=== PATIENT | female | born 1950 | race Caucasian/White ===

== ENCOUNTER 2020-02-03 17:10 | Outpatient (CLI) | payer MEDICARE, SELFPAY ==
[2020-02-03 18:05] LABS: Alanine Aminotransferase 15 U/L (4-35); Albumin Level 3.8 g/dL (3.5-5.1); Alkaline Phosphatase 70 U/L (38-126); Aspartate Amino Transferase 32 U/L (14-36); Bilirubin,Total 0.5 mg/dL (0.2-1.3); Blood Urea Nitrogen 12 mg/dL (7-17); Calcium 8.8 mg/dL (8.4-10.2); Carbon Dioxide 32 mmol/L (22-30); Chloride 101 mmol/L (98-107); Cholesterol 156 mg/dL (0-200); Estimated Glomerular Filt Rate 49; Glucose 167 mg/dL (65-105); HDL Direct 39 mg/dL; Potassium 4.5 mmol/L (3.4-5.0); Sodium 139 mmol/L (137-145); Triglycerides 179 mg/dL (<150)
[2020-02-03 18:18] LABS: LDL Cholesterol Direct 93 mg/dL
[2020-02-03 18:36] LABS: Hemoglobin A1C 6.2 % (<5.7)
[2020-02-03 18:47] LABS: Vitamin D 25 Hydroxy 36.6 ng/mL
== END 2020-02-03 17:11 | disposition home or self-care (01) ==
PROVIDERS: PCP Internal Medicine; Visit Provider Nurse Practitioner
DX: E11.65 Type 2 diabetes mellitus with hyperglycemia (principal); Z79.4 Long term (current) use of insulin; E78.5 Hyperlipidemia, unspecified; E55.9 Vitamin D deficiency, unspecified
CPT/HCPCS: 36415; 80053; 80061; 82306; 83036

== ENCOUNTER 2020-03-15 13:10 | Outpatient (RCR) | payer MEDICARE, SELFPAY ==
--- NOTE | 2020-03-15 16:25 | PTOPEVAL ---
PHYSICAL THERAPY WHEELCHAIR EVALUATION Thank you for referring Carlie Montero to [facility]. Please see attached wheelchair evaluation for details. No further care will be administered. Please review, sign, date and return this plan of care DAVID. I agree with and certify that the following plan of care is medically necessary. Referring Physician Date Attending Provider: Chauncey Addison, DO Evaluation Neurological History Hx Neurological Disorders No Significant History Cardiovascular History Hx Cardiac Disorders No Significant History Respiratory History Hx Other Respiratory Disorders Yes: history of punctured lungs, resting 93% SaO2 Musculoskeletal History Hx Back Injury Yes Hx Back Pain Yes: fusion Hx Orthopedic Surgery Yes: right femur ORIF Pain History Has Past Pain Affected Your Daily Life Yes Evaluation Information Problem Diagnosis I89.0, E66.01, M54.4 Subjective Information Wheelchair evaluation: Carlie Query Text:As Reported By Patient/ is in need of a new power Family wheelchair. Her current chair is 20 years ago and is currently worn beyond repair. Please see scanned wheelchair evaluation for details regarding history and home setting and current needs for the power wheelchair. Based on her medical history she requires the power wheelchair for functional and independent mobility within her home. Self Report Pain Assessment Bilateral Back Reported Pain Level 7 Pain Score Pain Score 7: Self Report
== END 2020-06-13 23:59 | disposition home or self-care (01) ==
LOC: ANHPT 13:10
PROVIDERS: PCP Internal Medicine; Visit Provider Internal Medicine
DX: I89.0 Lymphedema, not elsewhere classified (principal); M54.5 Low back pain; E66.01 Morbid (severe) obesity due to excess calories; G89.29 Other chronic pain; Z87.39 Personal history of other diseases of the musculoskeletal system and connective tissue
CPT/HCPCS: 97162

== ENCOUNTER 2020-06-14 23:20 | Emergency (ER) | payer MEDICARE, SELFPAY ==
--- NOTE | ~2020-06-14 | XR_ITS ---
EXAMINATION: XR chest 1V portable EXAM DATE: 06/15/2020 00:39 INDICATION: Weakness, shortness of breath. TECHNIQUE: Portable AP frontal chest x-ray was obtained. Comparison is made to prior examination from 11/25/2018. FINDINGS: There is mild cardiomegaly. There is pulmonary vascular congestion. No confluent consolidat ion, pneumothorax or pleural effusion suspected. There are bony degenerative changes. IMPRESSION: Congestive changes. Reviewed, dictated and finalized at location A. IMPRESSION: Congestive changes.
[2020-06-14 23:22] VITALS: BP 152/100; PULSE 104; RESP 20; TEMP 37.9; O2SAT 100
--- NOTE | 2020-06-14 23:25 | ECG_ITS ---
Measurements Intervals [place] Rate: 103 P: 55 ND: 195 QRS: 18 QRSD: 101 T: 43 QT: 346 QTc: 453 Interpretive Statements SINUS TACHYCARDIA BORDERLINE ST-T WAVE ABNORMALITY- INF/LAT LEADS BASELINE WANDER- I, II ABNORMAL ECG Electronically Signed On 06-19-2020 16:07:59 CDT by Darnell Dewitt D.O.
[2020-06-15] MEDS: ONDANSETRON INJ 4 MG/2 ML VIAL IV PUSH (00:01)
[2020-06-15] MEDS: ACETAMINOPHEN 500 MG TABLET 1000 MG PO (00:01)
[2020-06-15 00:06] LABS: Basophils Percent Auto 0.2 % (0.2-1.2); Eosinophils Absolute Auto 0.1 K/mm3 (0-0.3); Eosinophils Percent Auto 0.5 % (0-4.4); Hematocrit 36.9 % (37.0-47.0); Hemoglobin 12.7 g/dL (12.0-15.0); Immature Granulocyte Absolute 0.04 K/mm3 (0.00-0.031); Immature Granulocyte Percent A 0.3 % (0-0.5); Lymphocytes Absolute Auto 0.69 K/mm3 (0.9-3.2); Lymphocytes Percent Auto 5.5 % (18.3-44.2); Mean Corpuscular HGB Conc 34.4 g/dl (32-36); Mean Corpuscular Hemoglobin 32.9 pg (26-34); Mean Corpuscular Volume 95.6 fl (80-100); Mean Platelet Volume 10.2 fl (7.4-10.4); Monocytes Absolute Auto 0.8 K/mm3 (0.1-0.6); Neutrophils Absolute Auto 10.9 K/mm3 (1.3-6.7); Neutrophils Percent Auto 87.5 % (45.5-73.1); Platelet Count Result 122 k/mm3 (150-375); Red Blood Count 3.86 M/mm3 (4.2-5.4); Red Cell Distribution Width 12.8 % (11.5-14.5); White Blood Count 12.5 K/mm3 (4.5-10.0)
[2020-06-15 00:30] LABS: Alanine Aminotransferase 13 U/L (4-35); Albumin Level 3.8 g/dL (3.5-5.1); Alkaline Phosphatase 88 U/L (38-126); Anion Gap 7 mmol/L (8-16); Aspartate Amino Transferase 30 U/L (14-36); Blood Urea Nitrogen 13 mg/dL (7-17); Calcium 9.1 mg/dL (8.4-10.2); Carbon Dioxide 29 mmol/L (22-30); Chloride 101 mmol/L (98-107); Estimated CRCL calculation 88 ml/min; Estimated Glomerular Filt Rate 55; Glucose 107 mg/dL (65-105); Lipase 17 U/L (23-300); Potassium 4.1 mmol/L (3.4-5.0); Sodium 137 mmol/L (137-145)
[2020-06-15 00:58] VITALS: BP 141/80; PULSE 109; RESP 20; TEMP 38.3; O2SAT 99
[2020-06-15 01:33] LABS: Add Urine Microscopic? YES; Appearance Urine Cloudy (Clear); Bacteria Urine Trace /hpf; Bilirubin Urine Negative (Negative); Blood Urine 1+ (Negative); Color Urine Yellow (Yellow); Glucose Urine UA Negative (Negative); Ketones Urine Negative (Negative); Leukocyte Esterase Ur 3+ LEU/UL (Negative); Mucus Urine Rare /lpf; Nitrate Urine Negative (Negative); Protein Urine 2+ mg/dL (Negative); RBC Urine 21-50 /hpf (0-2); Squamous Epithelial Cell Urine Moderate /hpf (Few); WBC Urine >75 /hpf
[2020-06-15] MEDS: AMOXICILLIN 500 MG CAPSULE PO (02:03)
--- NOTE | 2020-06-15 02:22 | ED.GENADULT ---
HPI - General Adult General Chief complaint: Weakness Stated complaint: weak Time Seen by Provider: 06/14/20 23:23 History of Present Illness HPI narrative: Patient is a 69-year-old female who presents the ER with concerns for weakness. Reports just this evening she started feels slightly weaker than typical and then her and her family noted that her temperature was elevated to 102 ?F. She is had no runny nose/sore throat/productive cough. No known COVID exposures. No loss of smell or taste. She denies any abdominal pain or diarrhea. She is without any nausea or vomiting. She does not think she is having any abnormal urinary symptoms. Related Data Home Medications Medication Instructions Recorded Confirmed nystatin 100,000 unit/gram topical 1 applic TOPICAL BID 08/04/19 08/10/19 powder insulin human U-100 NPH-regulr See Rx Instructions SUB-Q .COMPLEX 11/22/19 70-30 mix 100 unit/mL subcutaneous susp oxycodone myristate [Xtampza ER] 18 mg PO BID 06/15/20 Allergies Allergy/AdvReac Type Severity Reaction Status Date / Time nitrofurantoin Allergy Severe Unknown Verified 08/10/19 11:38 NSAIDS (Non-Steroidal Allergy Severe Unknown Verified 08/10/19 11:38 Anti-Inflamma nut - unspecified Allergy Severe Anaphylactic Verified 08/10/19 11:38 Shock adhesive Allergy Unknown Unknown Verified 08/10/19 11:38 cefaclor Allergy Unknown Unknown Verified 08/10/19 11:38 celecoxib Allergy Unknown Unknown Verified 08/10/19 11:38 Cephalosporins Allergy Unknown Unknown Verified 08/10/19 11:38 ciprofloxacin Allergy Unknown Vomiting Verified 08/10/19 11:38 ibuprofen Allergy Unknown Unknown Verified 08/10/19 11:38 inositol Allergy Unknown Unknown Verified 08/10/19 11:38 lisinopril Allergy Unknown Unknown Verified 08/10/19 11:38 morphine Allergy Unknown Unknown Verified 08/10/19 11:38 niacin Allergy Unknown Unknown Verified 08/10/19 11:38 peanut Allergy Unknown Unknown Verified 08/10/19 11:38 Pistachio Allergy Severe Anaphylactic Uncoded 08/10/19 11:38 Shock Cashew Allergy Unknown Unknown Uncoded 08/10/19 11:38 Contrast Media Allergy Unknown Unknown Uncoded 08/10/19 11:38 Review of Systems Review of Systems: All systems reviewed & are unremarkable except as noted in HPI and below Constitutional: Constitutional: Denies chills, Reports fever(s) and Denies weakness ENT: Denies nasal congestion and Denies sore throat Cardiovascular: Cardiovascular: Denies chest pain and Denies radiating jaw, neck or arm pain Gastrointestinal: Gastrointestinal: Denies abdominal pain, Denies diarrhea, Denies nausea and Denies vomiting Genitourinary: Genitourinary: Denies nocturia and Denies dysuria [facility] Past Medical History Medical History (Updated 06/15/20 @ 02:29 by Stefano Johnson MD) Benign essential hypertension Bipolar affective disorder Cholecystectomy planned Chronic dermatitis Coronary artery disease DM 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 HEAD: Normocephalic, atraumatic. ENT: Mucous membranes moist. CHEST: Clear to auscultation. No respiratory distress. HEART: Regular rate and rhythm. Normal peripheral pulses. ABDOMEN: Soft, nontender, nondistended, normal active bowel sounds. EXTREMITIES: Normal range of motion. Significant lower extremity edema bilaterally related to lymphedema
[2020-06-15 02:38] VITALS: BP 124/68; PULSE 104; RESP 20; TEMP 38.1; O2SAT 96
== END 2020-06-15 02:39 | disposition home or self-care (01) ==
PROVIDERS: Emergency Provider Emergency Medicine; PCP Internal Medicine
DX: N39.0 Urinary tract infection, site not specified (principal); I25.10 Atherosclerotic heart disease of native coronary artery without angina pectoris; I11.0 Hypertensive heart disease with heart failure; I50.9 Heart failure, unspecified; E78.2 Mixed hyperlipidemia; E66.01 Morbid (severe) obesity due to excess calories; Z68.44 Body mass index [BMI] 60.0-69.9, adult; G25.81 Restless legs syndrome; F31.9 Bipolar disorder, unspecified; Z79.4 Long term (current) use of insulin; Z86.718 Personal history of other venous thrombosis and embolism; Z79.84 Long term (current) use of oral hypoglycemic drugs
CPT/HCPCS: 36415; 51701; 71045; 80053; 81001; 83690; 85025; 87077; 87086; 87088; 87186; 93005; 96374; 99284; A9270; J2405

== ENCOUNTER 2020-08-21 13:04 | Outpatient (CLI) | payer MEDICARE, SELFPAY ==
[2020-08-21 13:59] LABS: Alanine Aminotransferase 14 U/L (4-35); Albumin Level 3.6 g/dL (3.5-5.1); Alkaline Phosphatase 83 U/L (38-126); Anion Gap 5 mmol/L (8-16); Aspartate Amino Transferase 33 U/L (14-36); Bilirubin,Total 0.9 mg/dL (0.2-1.3); Blood Urea Nitrogen 12 mg/dL (7-17); Carbon Dioxide 32 mmol/L (22-30); Chloride 102 mmol/L (98-107); Cholesterol 155 mg/dL (0-200); Estimated Glomerular Filt Rate > 60; Glucose 142 mg/dL (65-105); HDL Direct 29 mg/dL; Potassium 4.3 mmol/L (3.4-5.0); Sodium 139 mmol/L (137-145); Triglycerides 155 mg/dL (<150)
[2020-08-21 14:10] LABS: LDL Cholesterol Direct 100 mg/dL
[2020-08-21 15:19] LABS: Valproic Acid 33.6 ug/mL (50-120)
[2020-08-21 15:21] LABS: Hemoglobin A1C 5.8 % (<5.7)
== END 2020-08-21 13:05 | disposition home or self-care (01) ==
LOC: ANHLAB 13:05
PROVIDERS: PCP Internal Medicine; Visit Provider Internal Medicine
DX: E11.65 Type 2 diabetes mellitus with hyperglycemia (principal); Z51.81 Encounter for therapeutic drug level monitoring; Z79.899 Other long term (current) drug therapy; I10 Essential (primary) hypertension; E11.9 Type 2 diabetes mellitus without complications; E78.5 Hyperlipidemia, unspecified
CPT/HCPCS: 36415; 80053; 80061; 80164; 83036

== ENCOUNTER 2020-09-19 07:21 | Outpatient (RCR) | payer MEDICARE, SELFPAY ==
[2020-07-25 15:25] VITALS: BMI 57.2
== END 2020-09-19 12:31 | disposition home or self-care (01) ==
LOC: ANHWOC 07:21
PROVIDERS: PCP Internal Medicine; Visit Provider Internal Medicine
DX: L98.419 Non-pressure chronic ulcer of buttock with unspecified severity (principal)
CPT/HCPCS: 99211; 99213; G0463

== ENCOUNTER 2021-02-16 14:30 | Outpatient (CLI) | payer MEDICARE, SELFPAY ==
[2021-02-16 15:05] LABS: Alanine Aminotransferase 14 U/L (4-35); Albumin Level 3.7 g/dL (3.5-5.1); Alkaline Phosphatase 68 U/L (38-126); Anion Gap 7 mmol/L (8-16); Aspartate Amino Transferase 31 U/L (14-36); Bilirubin,Total 0.9 mg/dL (0.2-1.3); Blood Urea Nitrogen 14 mg/dL (7-17); Calcium 9.1 mg/dL (8.4-10.2); Carbon Dioxide 28 mmol/L (22-30); Chloride 104 mmol/L (98-107); Cholesterol 186 mg/dL (0-200); Estimated Glomerular Filt Rate 55; Glucose 127 mg/dL (65-105); HDL Direct 42 mg/dL; Potassium 4.7 mmol/L (3.4-5.0); Sodium 139 mmol/L (137-145); Triglycerides 139 mg/dL (<150)
[2021-02-16 15:15] LABS: LDL Cholesterol Direct 108 mg/dL
[2021-02-16 17:09] LABS: Hemoglobin A1C 5.8 % (<5.7)
== END 2021-02-16 14:31 | disposition home or self-care (01) ==
LOC: ANHLAB 14:32
PROVIDERS: PCP Internal Medicine; Visit Provider Nurse Practitioner
DX: E78.5 Hyperlipidemia, unspecified (principal); E11.9 Type 2 diabetes mellitus without complications
CPT/HCPCS: 36415; 80053; 80061; 83036

== ENCOUNTER 2021-03-15 04:29 | Emergency (ER) | payer MEDICARE, SELFPAY ==
[2021-03-15 04:35] VITALS: BP 176/85; PULSE 102; RESP 20; TEMP 36.9; O2SAT 98
--- NOTE | 2021-03-15 04:39 | ED.DENTAL ---
HPI - Dental/Oral General Chief complaint: Dental/Oral Stated complaint: cheek infection/dental Time Seen by Provider: 03/15/21 04:36 Source: patient Mode of arrival: ambulatory Limitations: no limitations History of Present Illness HPI Narrative: Patient is a 71-year-old female complaining of I think I have an abscess in my teeth left side that started last night. Patient states that she was recently treated for dental abscess on the right side by her dentist. Denies any facial swelling, dysphagia, fever or chills. Denies any dental injury. Related Data Home Medications Medication Instructions Recorded Confirmed vaginal moisturizer combo no.4 ea TOPICAL Q2H g 07/21/20 02/20/21 Healthy Colon 07/25/20 02/20/21 diphenhydramine HCl [Benadryl] 25 mg PO Q6H PRN 07/25/20 02/20/21 jkksanji-pdo-GS-lycopen-lutein 1 tablet PO DAILY 07/25/20 02/20/21 [Centrum Silver] mupirocin 1 applic TOPICAL TID 07/25/20 02/20/21 omega-3 fatty acids-vitamin E 1 cap PO BID 07/25/20 02/20/21 [Fish Oil] oxycodone myristate [Xtampza ER] 18 mg PO BID 07/25/20 02/20/21 vitamin B complex [B Complex] 1 cap PO DAILY 07/25/20 02/20/21 insulin human U-100 NPH-regulr See Rx Instructions SUB-Q .COMPLEX 08/22/20 02/20/21 70-30 mix 100 unit/mL subcutaneous susp naproxen sodium 220 mg tablet 220 mg PO BID PRN 08/22/20 02/20/21 polyethylene glycol 3350 17 17 g PO DAILY PRN 08/22/20 02/20/21 gram/dose oral powder Allergies Allergy/AdvReac Type Severity Reaction Status Date / Time cefaclor Allergy Severe Anaphylaxis Verified 02/20/21 09:17 celecoxib Allergy Severe Hives Verified 02/20/21 09:17 Cephalosporins Allergy Severe Hives Verified 02/20/21 09:17 ciprofloxacin Allergy Severe Vomiting Verified 02/20/21 09:17 morphine Allergy Severe Vomiting Verified 02/20/21 09:17 nitrofurantoin Allergy Severe Swelling Verified 02/20/21 09:17 NSAIDS (Non-Steroidal Allergy Severe Hives Verified 02/20/21 09:17 Anti-Inflamma nut - unspecified Allergy Severe Anaphylactic Verified 02/20/21 09:17 Shock peanut Allergy Severe Anaphylaxis Verified 02/20/21 09:17 adhesive Allergy Intermediate Blister Verified 02/20/21 09:17 ibuprofen Allergy Intermediate Hives Verified 02/20/21 09:17 inositol Allergy Intermediate Hives Verified 02/20/21 09:17 lisinopril Allergy Intermediate Hives Verified 02/20/21 09:17 niacin Allergy Intermediate Hives Verified 02/20/21 09:17 Cashew Allergy Severe Anaphylaxis Uncoded 02/20/21 09:17 Contrast Media Allergy Severe stop Uncoded 02/20/21 09:17 breathing Pistachio Allergy Severe Anaphylactic Uncoded 02/20/21 09:17 Shock Review of Systems Review of Systems: All systems reviewed & are unremarkable except as noted in HPI and below PMFSH Past Medical History Medical History Benign essential hypertension Bipolar affective disorder Chronic dermatitis Coronary artery disease DM 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 type II, uncontrolled DVT (deep venous thrombosis) History of CHF (congestive heart failure) Lymphedema Mixed hyperlipidemia Moderate episode of recurrent major depressive disorder Morbid obesity RLS (restless legs syndrome) Surgical History Surgical History History of breast biopsy History of hysterectomy Hx of cholecystectomy Family History Family History Mother Family history of gallbladder disease Cerebrovascular accident Family history of heart disease in male family member before age 55 Family history of cardiac disorder Father Hypertension Family history of elevated blood lipids Cerebrovascular accident Malignant neoplasm of prostate Family history of diabetes mellitus in first degree relative Sibling Family history of elevated blood lipids Family history of diabetes mellitus in first degree relative Hypertension Social History Social
== END 2021-03-15 04:45 | disposition home or self-care (01) ==
LOC: ANHED 04:51
PROVIDERS: Emergency Provider Emergency Medicine; PCP Internal Medicine
DX: K04.7 Periapical abscess without sinus (principal); I25.10 Atherosclerotic heart disease of native coronary artery without angina pectoris; Z86.718 Personal history of other venous thrombosis and embolism; E11.9 Type 2 diabetes mellitus without complications; E78.2 Mixed hyperlipidemia; Z79.4 Long term (current) use of insulin; I50.9 Heart failure, unspecified; I11.0 Hypertensive heart disease with heart failure; L30.9 Dermatitis, unspecified; E66.01 Morbid (severe) obesity due to excess calories; Z68.43 Body mass index [BMI] 50.0-59.9, adult; F31.9 Bipolar disorder, unspecified; G25.81 Restless legs syndrome
CPT/HCPCS: 99283

== ENCOUNTER 2021-04-05 08:55 | Outpatient (CLI) | payer MEDICARE, SELFPAY ==
[2021-04-05 09:28] LABS: Add Urine Microscopic? YES; Appearance Urine Cloudy (Clear); Bacteria Urine Trace /hpf; Bilirubin Urine Negative (Negative); Blood Urine Negative (Negative); Color Urine Amber (Yellow); Glucose Urine UA Negative (Negative); Ketones Urine Negative (Negative); Leukocyte Esterase Ur 3+ LEU/UL (Negative); Mucus Urine Rare /lpf; Nitrate Urine Positive (Negative); Protein Urine 2+ mg/dL (Negative); RBC Urine 21-50 /hpf (0-2); Specific Grav Ur 1.019 (1.001-1.035); Squamous Epithelial Cell Urine Many /hpf (Few); WBC Clumps Urine Present /HPF; WBC Urine >75 /hpf
== END 2021-04-05 08:56 | disposition home or self-care (01) ==
PROVIDERS: PCP Internal Medicine; Visit Provider Nurse Practitioner
DX: R39.9 Unspecified symptoms and signs involving the genitourinary system (principal)
CPT/HCPCS: 81001; 87086; 87088

== ENCOUNTER 2021-08-23 17:43 | Outpatient (CLI) | payer MEDICARE, SELFPAY ==
[2021-08-23 18:27] LABS: Alanine Aminotransferase 16 U/L (4-35); Albumin Level 3.6 g/dL (3.5-5.1); Alkaline Phosphatase 79 U/L (38-126); Anion Gap 5 mmol/L (8-16); Aspartate Amino Transferase 33 U/L (14-36); Bilirubin,Total 0.7 mg/dL (0.2-1.3); Blood Urea Nitrogen 19 mg/dL (7-17); Calcium 8.9 mg/dL (8.4-10.2); Carbon Dioxide 27 mmol/L (22-30); Chloride 105 mmol/L (98-107); Cholesterol 157 mg/dL (0-200); Estimated Glomerular Filt Rate 49; Glucose 150 mg/dL (65-110); HDL Direct 34 mg/dL; Potassium 4.4 mmol/L (3.4-5.0); Sodium 137 mmol/L (137-145); Triglycerides 196 mg/dL (<150)
[2021-08-23 18:38] LABS: LDL Cholesterol Direct 83 mg/dL
[2021-08-23 21:19] LABS: Hemoglobin A1C 5.8 % (<5.7)
== END 2021-08-23 17:44 | disposition home or self-care (01) ==
LOC: ANHLAB 17:45
PROVIDERS: PCP Internal Medicine; Visit Provider Internal Medicine
DX: E11.65 Type 2 diabetes mellitus with hyperglycemia (principal); I10 Essential (primary) hypertension; E78.5 Hyperlipidemia, unspecified
CPT/HCPCS: 36415; 80053; 80061; 83036

== ENCOUNTER 2021-09-04 11:45 | Outpatient (RCR) | payer MEDICARE, SELFPAY ==
[2021-09-04 12:30] VITALS: BMI 57.5
== END 2021-11-19 08:38 | disposition home or self-care (01) ==
LOC: ANHWOC 11:45
PROVIDERS: PCP Internal Medicine; Visit Provider Nurse Practitioner
DX: L89.319 Pressure ulcer of right buttock, unspecified stage (principal); L89.329 Pressure ulcer of left buttock, unspecified stage
CPT/HCPCS: 99212; G0463

== ENCOUNTER 2022-01-02 20:34 | Inpatient (IN) | payer MEDICARE, SELFPAY ==
[2022-01-02] VITALS (10 sets, daily range): BP systolic 95–113; BP diastolic 55–79; PULSE 49–146; RESP 20–31; TEMP 37.2; O2SAT 93–100
--- NOTE | ~2022-01-02 | XR_ITS ---
EXAMINATION: XR abdomen NG/feed tube insert EXAM DATE: 01/03/2022 11:16 INDICATION: Orogastric tube insertion. TECHNIQUE: Frontal projection(s) of the abdomen for interpretation. There is no prior study for leila mendez. FINDINGS: Feeding tube tip and side-port collimated off the bottom of study but 2 overlies portions of the gastric body, expected position. Cardiomegaly. Nonobstructive upper abdominal bowel gas patter n. IMPRESSION: Feeding tube in position. Reviewed, dictated and finalized at location A. IMPRESSION: Feeding tube in position.
--- NOTE | ~2022-01-02 | XR_ITS ---
EXAMINATION: XR chest port-a-cath/central EXAM DATE: 01/03/2022 03:25 INDICATION: Central line placement . TECHNIQUE: Portable AP frontal chest x-ray was obtained. Comparison is made to prior examination from 01/03/2022. FINDINGS: Narrow glottis probably phasic. Cardiomegaly and pulmonary vascular congestion. There is a right-sided IJ venous line, tip extending down to the SVC. No evidence of postprocedure pneumothorax. No confluent consolidation. No sizable pleural effusion. There are mild bony degenerative changes. IMPRESSION: 1. Mild CHF exacerbation. 2. No evidence postprocedure pneumothorax. Reviewed, dictated and finalized at location A.
--- NOTE | ~2022-01-02 | US_ITS ---
EXAMINATION: US renal BI DATE: 01/03/2022 16:13 INDICATION: Urinary tract infection, left flank pain TECHNIQUE: Multiple grayscale and Doppler ultrasound images of the kidneys were obtained. COMPARISON: None. FINDINGS: The right kidney measures 10.7 x 4.6 x 5.9 cm. The left kidney measures 13.2 x 5.9 x 6.2 cm . The kidneys demonstrate normal parenchymal echogenicity. There is no hydronephrosis. The bladder is obscured by bowel gas and not well visualized. IMPRESSION: 1. Normal kidneys without hydronephrosis. Reviewed, dictated and finalized at location F.
--- NOTE | ~2022-01-02 | XR_ITS ---
EXAMINATION: XR lumbar spine 2-3V DATE: 01/02/2022 21:33 INDICATION: Back pain after fall TECHNIQUE: Anteroposterior and lateral views of the lumbar spine, and cone-down lateral view of the l umbosacral junction were obtained. COMPARISON: 09/03/2018 FINDINGS: There is inadequate penetration on the lateral views to assess bone alignment due to body h abitus. No fracture is identified on the AP view. An interbody device is present at L4-5. There are s urgical clips projecting in the left pelvis. There is antegrade intramedullary prashant is present in the right femur. IMPRESSION: 1. Grossly no fracture, lateral views inadequate due to body habitus. Reviewed, dictated and finalized at location F.
--- NOTE | ~2022-01-02 | XR_ITS ---
EXAMINATION: XR chest 1V EXAM DATE: 01/03/2022 02:05 INDICATION: Dyspnea, HTN, CHF TECHNIQUE: Portable AP frontal chest x-ray was obtained. Comparison is made to prior examination from 06/15/2020. FINDINGS: Cardiomegaly and pulmonary vascular congestion. Possible mild pulmonary edema. No confluent consolidation, pneumothorax or pleural effusion suspected. There are mild bony degenerative changes. IMPRESSION: Mild CHF exacerbation. Reviewed, dictated and finalized at location A. IMPRESSION: Mild CHF exacerbation.
--- NOTE | ~2022-01-02 | XR_ITS ---
EXAMINATION: XR chest ET placement EXAM DATE: 01/03/2022 11:06 INDICATION: Intubated. TECHNIQUE: Portable AP frontal chest x-ray was obtained. Comparison is made to prior examination from earlier same date. FINDINGS: Endotracheal tube tip appears to be about 2 cm above the cesar. There is a right IJ venous line in mid SVC level. No evidence of pneumothorax. Cardiomegaly and pulmonary vascular congestion. There may be mild pulmonary edema. No confluent consolidation. There are mild bony degenerative dubois es. IMPRESSION: 1. ET tube, right IJ line in position. 2. Cardiomegaly, pulmonary vascular congestion. Reviewed, dictated and finalized at location A.
--- NOTE | ~2022-01-02 | XR_ITS ---
EXAMINATION: XR chest 1V portable EXAM DATE: 01/04/2022 08:12 INDICATION: Respiratory failure. TECHNIQUE: Portable AP frontal chest x-ray was obtained. Comparison is made to prior examination from 01/03/2022. FINDINGS: Endotracheal tube tip appears to be about 2 cm above the cesar. There is a right IJ venou s line in mid SVC level. External pacer. No evidence of pneumothorax. Cardiomegaly and pulmonary vasc ular congestion. Ill-defined and lateral airspace disease, edema and/or pneumonia. Please clinically correlate. No confluent consolidation. There are mild bony degenerative changes. IMPRESSION: 1. ET tube, right IJ line in position. 2. Cardiomegaly, pulmonary vascular congestion. 3. Ill-defined bilateral edema and/or pneumonia. Reviewed, dictated and finalized at location A.
--- NOTE | 2022-01-02 20:48 | PC.NURSE ---
lift sheet with black handles belongs to [facility]. item needs to be bagged, labeled and placed in [facility] for picker / packer at later time
--- NOTE | 2022-01-02 21:28 | ED.FALL ---
HPI - Fall General Chief Complaint: Fall Stated Complaint: glf low back pain Time Seen by Provider: 01/02/22 20:42 Source: patient and EMS Mode of arrival: EMS Limitations: no limitations History of Present Illness HPI Narrative: 71-year-old with a history of morbid obesity, hypertension, lymphedema of both lower extremities here, with complaints of lower back pain. Patient states that she fell off the toilet. She denies any head injury. She denies any other injuries MD complaint: fall Onset (ago): hour(s) (1) Fall from: other (Toilet) Place fall occurred: home Loss of consciousness: none Location of injury: back (Lower back) Severity: moderate Quality: aching Associated symptoms (after fall): denies Related Data Home Medications Medication Instructions Recorded Confirmed Healthy Colon 07/25/20 08/28/21 diphenhydramine HCl [Benadryl] 25 mg PO Q6H PRN 07/25/20 08/28/21 yujlnzzg-rrq-YY-lycopen-lutein 1 tablet PO DAILY 07/25/20 08/28/21 [Centrum Silver] mupirocin 1 applic TOPICAL TID 07/25/20 08/28/21 omega-3 fatty acids-vitamin E 1 cap PO BID 07/25/20 08/28/21 [Fish Oil] oxycodone myristate [Xtampza ER] 18 mg PO BID 07/25/20 08/28/21 vitamin B complex [B Complex] 1 cap PO DAILY 07/25/20 08/28/21 insulin human U-100 NPH-regulr See Rx Instructions SUB-Q .COMPLEX 08/22/20 08/28/21 70-30 mix 100 unit/mL subcutaneous susp naproxen sodium 220 mg tablet 220 mg PO BID PRN 08/22/20 08/28/21 Allergies Allergy/AdvReac Type Severity Reaction Status Date / Time cefaclor Allergy Severe Anaphylaxis Verified 01/02/22 21:05 celecoxib Allergy Severe Hives Verified 01/02/22 21:05 Cephalosporins Allergy Severe Hives Verified 01/02/22 21:05 ciprofloxacin Allergy Severe Vomiting Verified 01/02/22 21:05 morphine Allergy Severe Vomiting Verified 01/02/22 21:05 nitrofurantoin Allergy Severe Swelling Verified 01/02/22 21:05 NSAIDS (Non-Steroidal Allergy Severe Hives Verified 01/02/22 21:05 Anti-Inflamma nut - unspecified Allergy Severe Anaphylactic Verified 01/02/22 21:05 Shock peanut Allergy Severe Anaphylaxis Verified 01/02/22 21:05 adhesive Allergy Intermediate Blister Verified 01/02/22 21:05 ibuprofen Allergy Intermediate Hives Verified 01/02/22 21:05 inositol Allergy Intermediate Hives Verified 01/02/22 21:05 lisinopril Allergy Intermediate Hives Verified 01/02/22 21:05 niacin Allergy Intermediate Hives Verified 01/02/22 21:05 Cashew Allergy Severe Anaphylaxis Uncoded 01/02/22 21:05 Contrast Media Allergy Severe stop Uncoded 01/02/22 21:05 breathing Pistachio Allergy Severe Anaphylactic Uncoded 01/02/22 21:05 Shock Review of Systems Review of Systems: All systems reviewed & are unremarkable except as noted in HPI and below Constitutional: Constitutional: Reports no additional constitutional complaints Eyes: Eyes: Reports no additional eye complaints ENT: Reports system reviewed and no additional complaints, except as documented Cardiovascular: Cardiovascular: Reports no additional cardiovascular complaints Respiratory: Respiratory: Reports no additional respiratory complaints Gastrointestinal: Gastrointestinal: Reports no additional gastrointestinal complaints Musculoskeletal: Musculoskeletal: Reports as per HPI Integumentary/Breasts: Skin/Breast: Reports system reviewed and no additional complaints, except as docu Neurologic: Reports system reviewed and no additional complaints, except as documented PMFSH Past Medical History Medical History Benign essential hypertension Bipolar affective disorder Chronic dermatitis Coronary artery disease DM 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 type II, uncontrolled DVT (deep venous thrombosis) History of CHF (congestive heart failure) Lymphedema Mixed hyperlipidemia Moderate episode of recurrent major depressive disorder Morbid obesity RLS (restless legs syndrome) Surgical History Surgical History (Reviewed 01/02/22
[2022-01-02] MEDS: fentaNYL CITRATE INJ (*CRX) 100 MCG/2 ML VIAL 50 MCG IM (21:33)
--- NOTE | 2022-01-02 21:54 | ECG_ITS ---
Measurements Intervals [place] Rate: 143 P: NM: 0 QRS: 12 QRSD: 93 T: 181 QT: 276 QTc: 426 Interpretive Statements ATRIAL FIBRILLATION WITH RAPID VENTRICULAR RESPONSE ST DEVIATION AND MODERATE T-WAVE ABNORMALITY, CONSIDER LATERAL ISCHEMIA [-0.1+ mV T- WAVE IN I/aVL/V5/V6] ST DEVIATION AND MODERATE T-WAVE ABNORMALITY, CONSIDER INFERIOR ISCHEMIA [-0.1+ mV T- WAVE IN II/aVF] ABNORMAL ECG COMPARED TO ECG 06/14/2020 23:25:37 ATRIAL FIBRILLATION NOW PRESENT Electronically Signed On 01-03-2022 16:44:54 CDT by Cesar Forde M.D.
[2022-01-02] MEDS: ONDANSETRON HCL ODT 4 MG TABLET PO (22:21)
[2022-01-02] MEDS: HYDROmorphone HCL INJ (*CRX) 1 MG/ML SYR IM (22:21)
[2022-01-03] VITALS (86 sets, daily range): BP systolic 55–110; BP diastolic 29–88; PULSE 78–147; RESP 24–46; TEMP 36.6–37.1; O2SAT 86–100; BMI 65.7
--- NOTE | 2022-01-03 | ECHO_ITS ---
Patient Info Name: Carlie Montero Age: 71 years : 1950 Gender: Female Ht: 70 in Wt: 458 lbs BSA: 3.34 m2 HR: 101 bpm BP: 99 / 88 mmHg Heart Rhythm: Tachycardia Exam Date: 01/03/2022 9:51 AM Exam Location: [facility] Patient Status: Inpatient Admit Date: 01/03/2022 Staff Ordering Physician: Sherri Dozier DO Motion Picture Photographer: Naveen Anthony RDCS, RT Attending Provider: Jude Ramsey MD Referring Physician: Tasia TOWNSEND; Exam Type: CA echo dop color flow w con Study Info Indications R65.21 - Severe sepsis with septic shock I48.1 - Persistent atrial fibrillation Complete two-dimensional, color flow and Doppler transthoracic echocardiogram is performed. Summary 1. Technically difficult study with limited views. Regional wall motion assessment limited due to poor endomyocardial border definition despite Definity echo contrast administration. 2. Left ventricular chamber dimension is normal. 3. Left ventricular systolic function is moderately reduced, estimated at 40-45%. 4. There is moderately increased left ventricular wall thickness. 5. Left atrial chamber dimension is moderately enlarged. 6. Right atrial chamber dimension is severely enlarged. 7. There is moderate to severe aortic valve stenosis with a peak velocity of 318.91 cm/s, mean gradient of 23 mmHg, and aortic valve area of 0.80 cm2. 8. There is moderate tricuspid valve regurgitation. 9. Moderate pulmonary hypertension, estimated pulmonary arterial systolic pressure is 48 mmHg. 10. Dilated inferior vena cava with <50% collapse upon inspiration consistent with significantly elevated right atrial pressure, 15 mmHg. Left Ventricle Left ventricular chamber dimension is normal. Left ventricular systolic function is moderately reduced, estimated at 40-45%. There is moderately increased left ventricular wall thickness. The left ventricular diastolic function is abnormal. Technically difficult study with limited views. Regional wall motion assessment limited due to poor endomyocardial border definition despite Definity echo contrast administration. Right Ventricle Right ventricular chamber dimension is not well visualized.. Left Atria Left atrial chamber dimension is moderately enlarged. Right Atria Right atrial chamber dimension is severely enlarged. Aortic Valve The aortic valve is not well visualized. There is moderate to severe aortic valve stenosis with a peak velocity of 318.91 cm/s, mean gradient of 23 mmHg, and aortic valve area of 0.80 cm2. There is no aortic valve regurgitation. There is moderate aortic valve calcification. Pulmonic Valve The pulmonic valve is not well visualized. Mitral Valve The mitral valve has normal leaflets. There is mild mitral valve regurgitation. The mitral valve annulus is mildly calcified. Tricuspid Valve The tricuspid valve leaflets are normal. There is moderate tricuspid valve regurgitation. Moderate pulmonary hypertension, estimated pulmonary arterial systolic pressure is 48 mmHg. Pericardium/Pleural The pericardium appears normal. There is trivial pericardial effusion. Inferior Vena Cava Dilated inferior vena cava with <50% collapse upon inspiration consistent with significantly elevated right atrial pressure, 15 mmHg. Aorta The aortic root size at the sinus of Valsalva is normal. There is mild aortic atherosclerosis. Left Ventricular Outflow Tract Name
[2022-01-03] MEDS: METOPROLOL TARTRATE 50 MG TAB 100 MG PO (00:24)
[2022-01-03 01:20] LABS: Hematocrit 47.6 % (37.0-47.0); Immature Platelet Fraction Pct 4.6 % (0.9-11.2); Mean Corpuscular HGB Conc 31.5 g/dl (32-36); Mean Corpuscular Hemoglobin 31.8 pg (26-34); Mean Corpuscular Volume 100.8 fl (80-100); Mean Platelet Volume 10.7 fl (7.4-10.4); Platelet Count Result 155 k/mm3 (150-375); Red Blood Count 4.72 M/mm3 (4.2-5.4); Red Cell Distribution Width 14.5 % (11.5-14.5); White Blood Count 7.8 K/mm3 (4.5-10.0)
[2022-01-03] MEDS: SODIUM CHLORIDE 0.9% IV 1,000 ML 999 ML IV CONT (01:22)
[2022-01-03 01:37] LABS: NT Pro B Type Natriuretic Pept > 35000 pg/mL (5-100)
[2022-01-03 01:52] LABS: Band Neutrophils Percent 13 % (0-6); Lymphocytes Absolute Manual 0.46 K/mm3 (1.1-4.5); Monocytes Absolute Manual 0.54 K/mm3 (0.1-0.90); Monocytes Percent Manual 7 % (3-9); Neutrophils Absolute Manual 6.78 K/mm3 (1.7-7.2); Neutrophils Percent Manual 74 % (46-73); Platelet Estimate Adequate (Adequate); Total Cells Counted 100
--- NOTE | 2022-01-03 01:56 | PC.NURSE ---
This RN was alerted by handling tech that the pt was out of bed. Pt was standing on the edge of bed, leaning on the end of the bed with the bed tilted in the air. Pt was trying to get to the bathroom. This RN along with several other staff members were able to pull the pt back in to bed safely. The pt is currently being assisted to use the bed mendoza at this time. EDP aware of pt escalating situation and is at the bedside.
[2022-01-03 02:10] LABS: Lactic Acid Reflex 9.6 mmol/L (0.7-2.1)
[2022-01-03 02:17] LABS: Alveolar/Arterial O2 Gradient 22.2 mmHg; Base Excess ABG -13.2 mEq/l (+/-2.0); Carboxyhemoglobin 0.8 % THb (0-2.0); Fractional Inspired Oxygen 21 %; HCO3 ABG 12.4 mEq/l (22.0-26.0); Methemoglobin ABG 0.2 %THb (0-1.5); Oxygen Content ABG 20.4 %vol (16.0-22.0); Oxygen Saturation ABG 96.1 % (95.0-100.0); Oxyhemoglobin 95.3 % THb (90.0-100.0); PCO2 ABG 28.9 mmHg (35.0-45.0); PO2 ABG 92.9 mmHg (80.0-100.0); PO2 FiO2 Ratio Arterial Blood 4.42 %; Reduced Hemoglobin 3.7 %THb (0-5.0); Total Hemoglobin 15.2 g/dL (12.0-18.0)
[2022-01-03 02:19] LABS: Device ROOM AIR; Modified Allen's Test Pass; Site Drawn RIGHT RADIAL; pH ABG 7.252 (7.350-7.450)
[2022-01-03 02:34] LABS: Anion Gap 18 mmol/L (8-16); Blood Urea Nitrogen 24 mg/dL (7-17); CRP 18.7 mg/dL (<1.0); Calcium 8.1 mg/dL (8.4-10.2); Carbon Dioxide 13 mmol/L (22-30); Chloride 103 mmol/L (98-107); Estimated CRCL calculation 31 ml/min; Estimated Glomerular Filt Rate 18; Glucose 123 mg/dL (65-110); Sodium 134 mmol/L (137-145)
--- NOTE | 2022-01-03 02:39 | PC.NURSE ---
JOHN from Dr. Layne per pt condition to initiate Arzola catheter. at bedside initiating central line access at this time. Pt understands procedure and has signed consent at this time.
[2022-01-03 02:54] LABS: Appearance Urine Clear (Clear); Bilirubin Urine 1+ (Negative); Blood Urine 2+ (Negative); Color Urine Yellow (Yellow); Glucose Urine UA Negative (Negative); Ketones Urine 1+ mg/dL (Negative); Leukocyte Esterase Ur 2+ LEU/UL (Negative); Nitrate Urine Negative (Negative); Protein Urine 2+ mg/dL (Negative); Specific Grav Ur 1.025 (1.001-1.035); Urobilinogen Urine 0.2 mg/dL (<2.0)
[2022-01-03 03:00] LABS: Bacteria Urine 4+ /hpf; Mucus Urine Rare /lpf; RBC Urine 51-75 /hpf (0-2); Squamous Epithelial Cell Urine Many /hpf (Few); WBC Clumps Urine Present /HPF; WBC Urine >75 /hpf
[2022-01-03 03:01] LABS: Add Urine Microscopic? YES
--- NOTE | 2022-01-03 03:08 | PC.NURSE ---
Central line placed by EDP Dr. Layne. Pt placed on defib pads due to unstable afib. EDP and Hospitalist will discuss the need for possible cardioversion.
[2022-01-03] MEDS: CLOPIDOGREL BISULFATE 75 MG TABLET PO (03:25)
[2022-01-03] MEDS: HEPARIN SODIUM 5,000 UNITS/ML VIAL 4000 UNITS IV PUSH (03:27)
[2022-01-03] MEDS: HEPARIN SOD/D5W 100 UNITS/ML 25,000 UNITS/250 ML BAG 10 UNITS IV CONT (03:31)
[2022-01-03 03:34] LABS: Partial Thromboplastin Time 42.5 SECONDS (22.3-36.8); Prothrombin Time 22.1 Seconds (11.1-14.7)
--- NOTE | 2022-01-03 03:34 | PM.IMHP ---
H&P: HPI History of Present Illness Date/Time: 01/03/22 03:34 Chief Complaint: back pain Narrative: 71-year-old female with a past medical history of morbid obesity, Parkinson's, CHF, lymphedema, diabetes, chronic pain at and congestive heart failure who presented to the ER after having a fall at home resulting in back pain. The patient reported that she has been feeling weaker for the last couple weeks and had went to the bathroom. She fell off the toilet landing on her buttocks causing low back pain. While in the ER was noted the patient was in atrial fibrillation with rapid ventricular response. The patient does not have a history of atrial fibrillation. As the patient had not had her medications for the day and they initially ER provider at provided patient with a dose of metoprolol. The patient did not receive her dose of metoprolol as the overnight ER physician found the patient to be hypotensive and instructed nursing staff not to give the medications Her repeat blood pressure was in the 130s systolic. Despite receiving metoprolol the patient's heart rate remained elevated. The patient was also hypotensive on monitors. The overnight ear provider re-evaluated the patient found the patient to be tachycardic, hypotensive and tachypneic. Labs had not been obtained on the patient's initial arrival to the ER but were obtained when the case was taken over. Labs were ordered and the patient was given an IV fluid bolus. EKG was performed and demonstrated atrial fibrillation with RVR. The initial EKG demonstrated ST depression in AVF V4 V5. Repeat EKG demonstrated ST changes throughout with ST depression anteriorly and laterally. A 30 EKG was performed after I was consulted which still demonstrate atrial fibrillation but with resolution of changes that suggested ischemia. By that time the patient had received a central line, fluids and pressors were initiated with Levophed. The patient was noted to be diaphoretic on my initial evaluation. She was alert oriented x4 but was unable to provide much history initially due to her clinical decompensation. The patient had significant metabolic acidosis/lactic acidosis and troponin of 13. Her UA was suggestive of a UTI. Once the patient was more clinically stable in the ICU the patient was able to tell me that she has been having bladder spasms and increased urinary frequency for the last 3 weeks consistent with UTI. She reports that she lives at home with her brother who is wheelchair-bound as he has no legs. She is also wheelchair-bound due to her morbid obesity and lymphadenopathy. She has difficulty getting to the doctor so had not been evaluated for symptoms. In hindsight she also noticed that she was having left flank pain. She denies any hematuria but has noticed cloudy urine with lots of sediment. She reports history of frequent UTIs and kidney stones. Her UA performed in the ER was suggestive of a UTI. All the patient's extremities have lymphedema and weeping wounds. She reports that her legs always have these wounds and weep. She states that she gets little bull eye on her skin that itch and pop open. She thinks that her right leg may be a little bit more swollen than baseline but her left leg always has severe lymphedema. She does not think her upper extremities or any more swollen than usual. She denies having any chest pain or palpitations. She denies a history of atrial fibrillation. She denies having any recent cough or congestion. She reports that she is chronically short of breath and her shortness of breath was not any worse than her baseline when she arrived to the ER but after all day interventions she has received in the ER she does feel more short of breath. The patient does have a significant metabolic acidosis with partial respiratory compensation. She denies any recent nausea or vomiting. She has had decreased oral intake. She states that she only has a bowel movement every 4-5 days. Sh
[2022-01-03] MEDS: NOREPINEPHRINE 8 MG/D5W 250 ML 8 MG/250 ML BAG 9.38 MG IV CONT (04:01)
[2022-01-03 04:02] LABS: SARS-CoV-2 RNA PCR Negative
[2022-01-03] MEDS: PHARMACIST COMMUNICATION ORDER 1 EACH XX (04:02)
--- NOTE | 2022-01-03 04:02 | ECG_ITS ---
Measurements Intervals [place] Rate: 126 P: SC: 0 QRS: 8 QRSD: 97 T: 175 QT: 298 QTc: 432 Interpretive Statements ATRIAL FIBRILLATION WITH RAPID VENTRICULAR RESPONSE ST DEVIATION AND MODERATE T-WAVE ABNORMALITY, CONSIDER LATERAL ISCHEMIA [-0.1+ mV T WAVE IN I/aVL/V5/V6] ABNORMAL ECG COMPARED TO ECG 01/02/2022 22:33:46 NO SIGNIFICANT CHANGES Electronically Signed On 01-03-2022 16:46:44 CDT by Cesar Forde M.D.
[2022-01-03] MEDS: AMIODARONE 150 MG/D5W 100 ML 150 MG/100 ML BAG 600 MG IV CONT ×2 (04:09→08:01)
[2022-01-03 04:18] LABS: Alanine Aminotransferase 32 U/L (4-35); Albumin Level 2.8 g/dL (3.5-5.1); Alkaline Phosphatase 34 U/L (38-126); Aspartate Amino Transferase 90 U/L (14-36); Bilirubin,Total 0.7 mg/dL (0.2-1.3)
[2022-01-03] MEDS: DOPamine 400 MG/D5W 250 ML 400 MG/250 ML BAG 17.01 MG IV CONT (04:19)
--- NOTE | 2022-01-03 04:21 | PC.NURSE ---
vorb AT 0418 to increase levo to 20 mcg and to start dopamine at 15 mcg.
--- NOTE | 2022-01-03 04:23 | PC.NURSE ---
VORB received for 2 amps of bicarb at this time from Dr. Dozier.
[2022-01-03] MEDS: AMIODARONE 360 MG/D5W 200 ML 360 MG/200 ML BAG 33.33 MG IV CONT ×2 (04:45→10:46)
--- NOTE | 2022-01-03 04:54 | PC.NURSE ---
JOHN from Dr. Dozier increase norepi to 30 mcg
[2022-01-03 04:58] LABS: Reflex Lactic Acid Yes or No Add Lactic
[2022-01-03] MEDS: VASOPRESSIN INJ 100 UNITS in DEXTROSE 5% 95 ML IV CONT (04:58)
[2022-01-03 05:00] LABS: Hematocrit 47.4 % (37.0-47.0); Hemoglobin 15.1 g/dL (12.0-15.0); Mean Corpuscular HGB Conc 31.9 g/dl (32-36); Mean Corpuscular Hemoglobin 32.3 pg (26-34); Mean Corpuscular Volume 101.3 fl (80-100); Mean Platelet Volume 10.4 fl (7.4-10.4); Platelet Count Result 168 k/mm3 (150-375); Red Blood Count 4.68 M/mm3 (4.2-5.4); Red Cell Distribution Width 14.9 % (11.5-14.5); White Blood Count 10.6 K/mm3 (4.5-10.0)
--- NOTE | 2022-01-03 05:06 | PC.NURSE ---
JOHN from Dr. Dozier to increase vasopressin to 0.04
--- NOTE | 2022-01-03 05:07 | PC.NURSE ---
Pt upright and alert but very pale. Pt is in a lot of pain and this RN does not think she understands the severity of the situation. Pt continually asking to be repositioned and needs to be redirected to remain calm.
--- NOTE | 2022-01-03 05:10 | PC.NURSE ---
All drips have been verified at this time with Dr. Dozier at the bedside. Dopamine at 20, norepinephrine at 30, and vasopressin at 0.04.
[2022-01-03 05:15] LABS: Albumin Level 3.3 g/dL (3.5-5.1); Alkaline Phosphatase 30 U/L (38-126); Anion Gap 19 mmol/L (8-16); Aspartate Amino Transferase 125 U/L (14-36); Bilirubin,Total 1.1 mg/dL (0.2-1.3); Blood Urea Nitrogen 26 mg/dL (7-17); Calcium 7.9 mg/dL (8.4-10.2); Carbon Dioxide 16 mmol/L (22-30); Chloride 100 mmol/L (98-107); Estimated CRCL calculation 32 ml/min; Estimated Glomerular Filt Rate 17; Glucose 91 mg/dL (65-110); Potassium 5.3 mmol/L (3.4-5.0); Sodium 135 mmol/L (137-145)
[2022-01-03 05:16] LABS: Partial Thromboplastin Time 105.6 SECONDS (22.3-36.8)
[2022-01-03 05:31] LABS: Band Neutrophils Percent 10 % (0-6); Lymphocytes Absolute Manual 0.84 K/mm3 (1.1-4.5); Monocytes Absolute Manual 0.95 K/mm3 (0.1-0.90); Monocytes Percent Manual 9 % (3-9); Neutrophils Absolute Manual 8.79 K/mm3 (1.7-7.2); Neutrophils Percent Manual 73 % (46-73); Platelet Estimate Adequate (Adequate); Total Cells Counted 100
[2022-01-03 05:49] LABS: Alanine Aminotransferase 41 U/L (4-35)
[2022-01-03 05:50] LABS: Lactic Acid Reflex 11.8 mmol/L (0.7-2.1)
[2022-01-03] MEDS: SODIUM BICARBONATE 8.4% 50 MEQ/50 ML SYRINGE IV PUSH ×4 (05:57→14:57)
[2022-01-03] MEDS: DOPamine 400 MG/D5W 250 ML 400 MG/250 ML BAG 136.05 MG IV CONT (06:20)
[2022-01-03 06:21] LABS: Alveolar/Arterial O2 Gradient 126.2 mmHg; Base Excess ABG -13.4 mEq/l (+/-2.0); Fractional Inspired Oxygen 36 %; HCO3 ABG 12.2 mEq/l (22.0-26.0); Oxygen Saturation ABG 96.4 % (95.0-100.0); Oxyhemoglobin 95.4 % THb (90.0-100.0); PCO2 ABG 28.9 mmHg (35.0-45.0); PO2 FiO2 Ratio Arterial Blood 2.69 %; Total Hemoglobin 15.6 g/dL (12.0-18.0)
[2022-01-03] MEDS: CALCIUM GLUC 1,000 MG/NS 50 ML 1,000 MG/50 ML BAG 100 MG IVPB (06:21)
[2022-01-03 06:23] LABS: pH ABG 7.245 (7.350-7.450)
[2022-01-03 06:25] LABS: Device NASAL CANNULA; Modified Allen's Test Pass; Site Drawn RIGHT RADIAL
[2022-01-03] MEDS: SODIUM CHLORIDE 0.9% IV 1,000 ML 500 ML IV CONT (06:39)
--- NOTE | 2022-01-03 06:45 | ADMGEN ---
This patient, Carlie Montero, was admitted to Intensive Care Unit-4. Patient/family oriented to hospital policies and general routines including ID bracelet, bed and alarms, visiting hours, pain management, procedures, bathroom and other care routines, personal items, smoking policy, room service/diet, and visiting hours. Information on how to activate the Rapid Response Team has been discussed. Patient/Family are encouraged to report perceived risks to care and to ask questions if they do not understand what they are told or what they should do.
[2022-01-03] MEDS: NOREPINEPHRINE 8 MG/D5W 250 ML 8 MG/250 ML BAG 56.25 MG IV CONT ×4 (08:14→20:42)
[2022-01-03] MEDS: HYDROCORTISONE SODIUM SUCCINATE 100 MG/2 ML VIAL IV PUSH ×2 (08:16→15:12)
[2022-01-03] MEDS: SODIUM BICARBONATE 8.4% 150 MEQ in DEXTROSE 5% 1,000 ML 950 ML 100 MEQ IV CONT (08:57)
[2022-01-03] MEDS: hetaSTARCH 6%/NACL 500 ML 250 ML IV CONT (09:39)
--- NOTE | 2022-01-03 09:45 | WPDCNINT ---
Assessment and Plan Assessment and plan (1) Respiratory failure with hypoxia: Qualifiers: Chronicity: acute Qualified Code(s): J96.01 - Acute respiratory failure with hypoxia Code(s): J96.91 - Respiratory failure, unspecified with hypoxia Status: Acute Assessment and Plan: Patient presented with septic shock, was given a total of 2.5 L in IV fluids, also with severe metabolic acidosis/lactic acidosis. Patient was getting more short of breath, decided to intubate the patient reports she has a respiratory arrest as she was tachypneic. I did discuss with the patient and she was agreeable for intubation -intubation was done on 01/03/2022 which was uneventful -currently on CMV mode of ventilation, peep of 8, 100% FiO2 -will obtain post intubation ABGs -will sedated patient with fentanyl and Versed infusion -add bronchodilators (2) Septic shock: Code(s): A41.9 - Sepsis, unspecified organism; R65.21 - Severe sepsis with septic shock Status: Acute Assessment and Plan: Patient with refractory hypotension, likely due to UTI, significant lactic acidosis could be related to ischemic bowel, chest x-ray shows pulmonary vascular congestion -currently on Levophed, Jamie-Synephrine, vasopressin -patient was started on stress dose steroids -will maintain MAP > 65-70 mmHg for adequate end organ perfusion -continue Zosyn, vancomycin -blood and urine cultures have been obtained and pending (3) UTI (urinary tract infection): Code(s): N39.0 - Urinary tract infection, site not specified Status: Acute Assessment and Plan: Urine cultures have been obtained and pending continue antibiotics as above (4) ARF (acute renal failure): Qualifiers: Acute renal failure type: with acute tubular necrosis Qualified Code(s): N17.0 - Acute kidney failure with tubular necrosis Code(s): N17.9 - Acute kidney failure, unspecified Status: Acute Assessment and Plan: Acute renal failure likely related to septic shock, infection/UTI, ATN -creatinine is 2.8 (baseline creatinine 0.9-1.1 on 08/23/2021) -will obtain urine lytes and renal ultrasound, check CK level -consult nephrology -patient given a total of 2.5 L of IV fluids, -continue sodium bicarb infusion (5) NSTEMI (non-ST elevated myocardial infarction): Code(s): I21.4 - Non-ST elevation (NSTEMI) myocardial infarction Status: Acute Assessment and Plan: Patient presented with troponin 13.8, repeat troponin of 14.1 and the 3rd set was 7.3 -patient currently on heparin infusion -cardiology evaluated the patient, given her acute renal injury and severe septic shock, patient not a candidate for coronary angiogram -continue heparin infusion -not a candidate for beta-kane given patient is on 3 pressors (6) Atrial fibrillation with rapid ventricular response: Code(s): I48.91 - Unspecified atrial fibrillation Status: Acute Assessment and Plan: Patient presented with AFib RVR, was given amiodarone bolus x2 and is on amiodarone infusion. Currently in sinus rhythm, rate controlled -patient does not have a history of AFib, this could be related to severe septic shock, metabolic acidosis/lactic acidosis -continue heparin infusion (7) Morbid obesity: Code(s): E66.01 - Morbid (severe) obesity due to excess calories Status: Acute Assessment and Plan: Chronic (8) Lymphedema: Code(s): I89.0 - Lymphedema, not elsewhere classified Status: Acute Assessment and Plan: Chronic (9) Type 2 diabetes mellitus without complication: Code(s): E11.9 - Type 2 diabetes mellitus without complications Status: Acute Assessment and Plan: Last hemoglobin A1c was 5.8 on 08/23/2021 -Accu-Cheks and sliding scale insulin (10) Chronic wound of extremity: Status: Acute Assessment and Plan: Wound care following the patient (11) DVT prophylaxis:
[2022-01-03 09:56] LABS: Partial Thromboplastin Time 88.2 SECONDS (22.3-36.8)
[2022-01-03] MEDS: PERFLUTREN LIPID MICROSPHERES 1.5 ML VIAL DILUTED TO 10 ML TOTAL VOLUME IV PUSH (10:00)
--- NOTE | 2022-01-03 10:09 | PM.CNCAR ---
Assessment and Plan Assessment and plan (1) Septic shock: Code(s): A41.9 - Sepsis, unspecified organism; R65.21 - Severe sepsis with septic shock Status: Acute Assessment and Plan: Patient critically ill on 3 pressors including norepinephrine, Jamie-Synephrine, and vasopressin. Clinical picture most suggestive of septic shock. Patient with significant lactic acidosis initially developed respiratory failure requiring intubation. Patient placed on stress dose steroids, broad-spectrum IV antibiotics including Zosyn and vancomycin. Cultures have been sent and are pending. She was started on IV amiodarone for atrial fibrillation but this was not felt to be a significant contributor to her hemodynamic instability. Further management in this regard per primary service and critical care. Prognosis is very poor with evidence of multi organ system dysfunction. She remains a full code. Patient primarily complains of abdominal pain yet apparently her body habitus is not suitable for the CT scanner at this institution. Spent 65 minutes in the care of this patient at bedside with the patient including examination, discussions with colleagues, chart review, medical decision-making, and documentation. (2) NSTEMI (non-ST elevated myocardial infarction): Code(s): I21.4 - Non-ST elevation (NSTEMI) myocardial infarction Status: Acute Assessment and Plan: Significant troponin elevation although with a flat curve and without symptoms suggestive of angina. No ST elevations on EKG. Case discussed with my interventional partners who also concurred patient with not a good candidate nor was angiography advised. Discussed with risk versus benefit at length with the patient which was prior to her eventual intubation given her coagulopathy and elevated bleeding risk, acute renal failure and possibility of worsening MAT function possibly requiring hemodialysis and documented contrast allergy which not yet been satisfactorily pretreated. Furthermore, there is no clear indication that doing so would provide clear benefit the face of significant risks. Patient verbalized understanding and agreed she would not want to take this risk without clear benefit. She was started on heparin infusion although her corresponding coagulopathy would further increase bleeding complication risk. I would favor discontinuation at this time. DVT prophylaxis as able. Repeat 12 lead EKG. 2D echocardiogram reveals moderate LV dysfunction EF 40 45% very technically difficult study moderate to severe aortic valve stenosis valve area 0.8 cm but with peak velocity 3.2 and mean gradient 23 mm Hg which are more suggestive of moderate. She has moderate pulmonary hypertension RVSP 48mmHg. (3) Atrial fibrillation with rapid ventricular response: Code(s): I48.91 - Unspecified atrial fibrillation Status: Acute Assessment and Plan: Patient appears to be in sinus tachycardia presently on IV amiodarone. Continue amiodarone for the time being. Monitor liver function and or evidence for toxicity in this regard. (4) ARF (acute renal failure): Qualifiers: Acute renal failure type: with acute tubular necrosis Qualified Code(s): N17.0 - Acute kidney failure with tubular necrosis Code(s): N17.9 - Acute kidney failure, unspecified Status: Acute Assessment and Plan: Creatinine 1.15 August 2021 yet ultimate chronicity remains unknown. Continue to monitor closely. Nephrology consultation. (5) Lactic acid acidosis: Code(s): E87.2 - Acidosis Status: Acute Assessment and Plan: Severe and worsening in setting of UTI. One management. CK elevated at 868. (6) Respiratory failure with hypoxia: Qualifiers: Chronicity: acute Qualified Code(s): J96.01 - Acute respiratory failure with hypoxia Code(s): J96.91 - Respiratory failure, unspecified with hypoxia Status: Acute Assessment and
[2022-01-03 10:10] LABS: Lactic Acid 13.3 mmol/L (0.7-2.1)
[2022-01-03 10:47] LABS: Alveolar/Arterial O2 Gradient 140.7 mmHg; Fractional Inspired Oxygen 36 %; HCO3 ABG 8.3 mEq/l (22.0-26.0); Oxygen Content ABG 19.4 %vol (16.0-22.0); Oxygen Saturation ABG 95.9 % (95.0-100.0); Oxyhemoglobin 95.4 % THb (90.0-100.0); PO2 ABG 92.6 mmHg (80.0-100.0); PO2 FiO2 Ratio Arterial Blood 2.57 %; Total Hemoglobin 14.4 g/dL (12.0-18.0)
[2022-01-03 10:48] LABS: pH ABG 7.232 (7.350-7.450)
[2022-01-03 10:49] LABS: Device NASAL CANNULA; PCO2 ABG 20.2 mmHg (35.0-45.0); Site Drawn ARTLINE
[2022-01-03] MEDS: SILVERGEL (ELTA) 45 ML 1 APPLIC TOPICAL (11:22)
[2022-01-03] MEDS: HYDROCORTISONE 1% 30 GM CREAM 1 APPLIC TOPICAL ×2 (11:22→21:57)
[2022-01-03] MEDS: RAPID SEQUENCE INTUBATION KIT 1 EACH (11:22)
--- NOTE | 2022-01-03 11:23 | WPDPROCEDUR ---
Procedures Arterial Line Arterial Line Date: 01/03/22 Arterial Line Time: 08:15 Discussed with the patient/family/POA, the placement of an arterial catheter, including its clinical necessity/indication and associated potential risks, benefits and alternatives.: Yes Time Out Performed: Yes Patient Position: supine Cured Meat Packing Supervisor Prep: sterile gown, sterile gloves, mask and hat Site: left and femoral Site Prep: chlorhexidine and sterile drape Skin Anesthesia: 1% lidocaine Technique used: ultrasound-guided Size (Gauge): 14 Length: 12 cm Closure/Dressing: suture, transparent dressing, hemostatic product, antimicrobial product and securement product Patient tolerated procedure: well Complications: none
--- NOTE | 2022-01-03 11:24 | WPDPROCEDUR ---
Procedures Intubation Intubation Date: 01/03/22 Intubation Time: 10:35 A pre-procedural Time-Out was completed immediately before starting the procedure and confirmed: Patient Identification, Site, Procedure, Patient Position and the Availability of Requisite Equipment: Yes Sedative: etomidate Mg given: 20 Paralytic: rocuronium Mg given: 50 Laryngoscope: fiber optic video scope Assist device used: fiber optic device ET tube size: 7.5 Tube secured depth (cm): 23 Tube secured location: lips Tube placement confirmation: visualized tube passing through cords, equal breath sounds bilaterally, no breath sounds over epigastrium and confirmation by capnometry Patient tolerated procedure: well Intubation complications: none Arterial Line Size (Gauge): 14
[2022-01-03] MEDS: MIDAZOLAM 100MG/NS 100ML(*CRX) 100 MG/100 ML BAG IV CONT (11:47)
[2022-01-03] MEDS: FENTANYL 2,500MCG/NS250ML(*CRX 2,500 MCG/250 ML BAG 7.5 MCG IV CONT (11:48)
[2022-01-03 12:11] LABS: Creatine Kinase 868 U/L (30-135)
[2022-01-03 12:18] LABS: Glucose Point of Care 124 mg/dl (65-105)
[2022-01-03] MEDS: PANTOPRAZOLE SODIUM IV 40 MG VIAL IV PUSH (12:20)
[2022-01-03 12:31] LABS: Hemoglobin A1C 5.8 % (<5.7)
[2022-01-03 12:32] LABS: Alveolar/Arterial O2 Gradient 301.1 mmHg; Base Excess ABG -20.1 mEq/l (+/-2.0); Fractional Inspired Oxygen 100 %; Oxygen Content ABG 20.9 %vol (16.0-22.0); Oxygen Saturation ABG 99.7 % (95.0-100.0); Oxyhemoglobin 98.5 % THb (90.0-100.0); PO2 ABG 385.9 mmHg (80.0-100.0); PO2 FiO2 Ratio Arterial Blood 3.86 %; Total Hemoglobin 14.4 g/dL (12.0-18.0)
[2022-01-03 12:33] LABS: Arterial Blood Gas PEEP 8 cmH2O; Arterial Blood Gas Vent Mode CMV; Arterial Blood Gas Ventilator rate 26 /MIN; Device VENTILATOR; Site Drawn ARTLINE; pH ABG 7.106 (7.350-7.450)
[2022-01-03 12:34] LABS: Arterial Blood Gas Tidal Volume 450 ml
[2022-01-03] MEDS: EPINEPHrine INJ 1 MG in DEXTROSE 5% IN WATER 250 ML 15.06 MG IV CONT (12:34)
[2022-01-03] MEDS: ALBUMIN HUMAN 25% 25 GM/100 ML 100 ML IVPB ×2 (12:36→17:52)
[2022-01-03] MEDS: SODIUM BICARBONATE 8.4% 50 MEQ/50 ML SYRINGE 100 MEQ IV PUSH (12:56)
--- NOTE | 2022-01-03 13:40 | PM.CNGS ---
Assessment and Plan Assessment and plan (1) Lactic acid acidosis: Code(s): E87.2 - Acidosis Status: Acute Assessment and Plan: Patient presented in septic shock with lactic acidosis and refractory hypotension, elevated troponin, possible cardiogenic shock, and multiple acute issues listed below. Her lactic acid is up to 13, which certainly could be caused by bowel ischemia. Due to her body habitus, she was unable to get a CT scan and likely would be too unstable at this point to even go down to CT if that was possible. Her vasopressor needs have quickly increased and she is now on 4 vasopressors. There is also a concern of acute coronary syndrome and Cardiology has been consulted. She is not a candidate for surgery at this time due to her severe septic shock, vasopressor needs, morbid obesity, and multiple co-morbidities outlined below. We feel any surgical intervention at this point would be futile. We would recommend to continue with medical treatment and closely monitor. I tried to call her brother to discuss the plan of care, but have not yet gotten a call back. Thank you for allowing us to see the patient in consultation. (2) Septic shock: Code(s): A41.9 - Sepsis, unspecified organism; R65.21 - Severe sepsis with septic shock Status: Acute Assessment and Plan: Presented with sepsis that could be related to UTI. Significant lactic acidosis, concerning for ischemic bowel (see plan above). Continue with medical management, broad-spectrum IV antibiotics, IV fluid resuscitation. Blood cultures pending. Currently on 4 vasopressors, wean as tolerated. (3) NSTEMI (non-ST elevated myocardial infarction): Code(s): I21.4 - Non-ST elevation (NSTEMI) myocardial infarction Status: Acute Assessment and Plan: Troponin peaked at 14.1. Was started on a heparin drip, which is currently on hold due to lack of IV access. Cardiology following, await their recommendations. (4) Atrial fibrillation with rapid ventricular response: Code(s): I48.91 - Unspecified atrial fibrillation Status: Acute Assessment and Plan: Cardiology following, patient on amiodarone drip. (5) ARF (acute renal failure): Qualifiers: Acute renal failure type: with acute tubular necrosis Qualified Code(s): N17.0 - Acute kidney failure with tubular necrosis Code(s): N17.9 - Acute kidney failure, unspecified Status: Acute Assessment and Plan: ARF with diminished urine output. Likely multifactorial. Continue IV fluids and management per primary service. (6) UTI (urinary tract infection): Code(s): N39.0 - Urinary tract infection, site not specified Status: Acute Assessment and Plan: UA suggests UTI. Continue broad-spectrum IV antibiotics. Could be contributing to sepsis. (7) Respiratory failure with hypoxia: Qualifiers: Chronicity: acute Qualified Code(s): J96.01 - Acute respiratory failure with hypoxia Code(s): J96.91 - Respiratory failure, unspecified with hypoxia Status: Acute Assessment and Plan: Intubated this morning and in the ICU. Continue vent management by Director Selection And Administration. (8) Aortic stenosis, severe: Code(s): I35.0 - Nonrheumatic aortic (valve) stenosis Status: Acute Assessment and Plan: Increases risks for surgery and general anesthesia. (9) Type 2 diabetes mellitus without complication: Code(s): E11.9 - Type 2 diabetes mellitus without complications Status: Acute Assessment and Plan: Increases risks for surgery. (10) Lymphedema: Code(s): I89.0 - Lymphedema, not elsewhere classified Status: Acute Assessment and Plan: Bilateral lower extremities with chronic leg wounds. Continue local wound care. (11) Morbid obesity: Code(s): E66.01 - Morbid (severe) obesity due to excess calories Status: Acute Assessment and Plan: BMI 65. Significantly incre
[2022-01-03] MEDS: EPINEPHrine INJ 4 MG in DEXTROSE 5% IN WATER 250 ML 38.1 MG IV CONT ×2 (14:41→21:56)
[2022-01-03] MEDS: IPRATROPIUM BR 0.02% INH SOLN 0.5 MG/2.5 ML VIAL INHALATION ×2 (14:49→20:14)
[2022-01-03] MEDS: DOPamine 400 MG/D5W 250 ML 400 MG/250 ML BAG 15.6 MG IV CONT (14:50)
[2022-01-03] MEDS: LEVALBUTEROL NEB 1.25 MG/3 ML 0.63 MG INHALATION ×2 (14:50→20:14)
[2022-01-03 18:08] LABS: Glucose Point of Care 142 mg/dl (65-105)
--- NOTE | 2022-01-03 19:11 | PM.IMPN ---
Progress Note: A&P Assessment and Plan (1) Respiratory failure with hypoxia: Qualifiers: Chronicity: acute Qualified Code(s): J96.01 - Acute respiratory failure with hypoxia Code(s): J96.91 - Respiratory failure, unspecified with hypoxia Status: Acute Assessment and Plan: Patient presented with septic shock, was given a total of 2.5 L in IV fluids, also with severe metabolic acidosis/lactic acidosis. Patient was getting more short of breath, manolo Farris was intubated 01/03/2022 Vent management per tea and spice supervisor Bronchodilators (2) Septic shock: Code(s): A41.9 - Sepsis, unspecified organism; R65.21 - Severe sepsis with septic shock Status: Acute Assessment and Plan: Patient with refractory hypotension, likely due to UTI, significant lactic acidosis could be related to ischemic bowel, chest x-ray shows pulmonary vascular congestion -currently on Levophed, Jamie-Synephrine, vasopressin -patient was started on stress dose steroids -will maintain MAP > 65-70 mmHg for adequate end organ perfusion -continue Zosyn, vancomycin -blood and urine cultures have been obtained and pending (3) UTI (urinary tract infection): Code(s): N39.0 - Urinary tract infection, site not specified Status: Acute Assessment and Plan: Urine cultures have been obtained and pending continue antibiotics as above (4) ARF (acute renal failure): Qualifiers: Acute renal failure type: with acute tubular necrosis Qualified Code(s): N17.0 - Acute kidney failure with tubular necrosis Code(s): N17.9 - Acute kidney failure, unspecified Status: Acute Assessment and Plan: Acute renal failure likely related to septic shock, infection/UTI, ATN -creatinine is 2.8 (baseline creatinine 0.9-1.1 on 08/23/2021) -will obtain urine lytes and renal ultrasound, check CK level -consult nephrology -patient given a total of 2.5 L of IV fluids, -continue sodium bicarb infusion (5) NSTEMI (non-ST elevated myocardial infarction): Code(s): I21.4 - Non-ST elevation (NSTEMI) myocardial infarction Status: Acute Assessment and Plan: Patient presented with troponin 13.8, repeat troponin of 14.1 and the 3rd set was 7.3 -patient currently on heparin infusion -cardiology evaluated the patient, given her acute renal injury and severe septic shock, patient not a candidate for coronary angiogram -continue heparin infusion -not a candidate for beta-kane given patient is on 3 pressors (6) Atrial fibrillation with rapid ventricular response: Code(s): I48.91 - Unspecified atrial fibrillation Status: Acute Assessment and Plan: Patient presented with AFib RVR, was given amiodarone bolus x2 and is on amiodarone infusion. Currently in sinus rhythm, rate controlled -patient does not have a history of AFib, this could be related to severe septic shock, metabolic acidosis/lactic acidosis -continue heparin infusion (7) Morbid obesity: Code(s): E66.01 - Morbid (severe) obesity due to excess calories Status: Acute Assessment and Plan: Chronic (8) Lymphedema: Code(s): I89.0 - Lymphedema, not elsewhere classified Status: Acute Assessment and Plan: Chronic (9) Type 2 diabetes mellitus without complication: Code(s): E11.9 - Type 2 diabetes mellitus without complications Status: Acute Assessment and Plan: Last hemoglobin A1c was 5.8 on 08/23/2021 -Accu-Cheks and sliding scale insulin (10) Chronic wound of extremity: Status: Acute Assessment and Plan: Wound care following the patient (11) DVT prophylaxis: Code(s): Z29.9 - Encounter for prophylactic measures, unspecified Status: Acute Assessment and Plan: Heparin infusion Additional Plan Stress ulcer prophylaxis: Protonix Nutrition: Currently NPO Code status: Full code Subjective Date/time seen: 01/03/22 1100 Interval history
[2022-01-03] MEDS: MINERAL OIL/WHITE PETROLATUM OINTMENT 1 APPLIC EACH EYE (21:57)
[2022-01-03 22:17] LABS: Hematocrit 40.3 % (37.0-47.0); Hemoglobin 12.4 g/dL (12.0-15.0)
[2022-01-03 22:19] LABS: Mean Platelet Volume 10.7 fl (7.4-10.4); Platelet Count Result 142 k/mm3 (150-375)
[2022-01-03 22:29] LABS: Fibrinogen 318 mg/dl (215-510)
[2022-01-03 22:30] LABS: INR 2.9; Prothrombin Time 29.7 Seconds (11.1-14.7)
[2022-01-03 22:31] LABS: Partial Thromboplastin Time 58.4 SECONDS (22.3-36.8)
[2022-01-03 22:50] LABS: D Dimer 3.96 ug/mL (<0.48)
[2022-01-03] MEDS: MAGNESIUM SULF 4 GM/WATER100ML 4 GM/100 ML BAG IVPB (23:09)
[2022-01-04] VITALS (30 sets, daily range): BP systolic 68–86; BP diastolic 28–36; PULSE 92–108; RESP 26–29; TEMP 36.2–39.4; O2SAT 87–100; BMI 66.9
[2022-01-04] MEDS: ALBUMIN HUMAN 25% 25 GM/100 ML 100 ML IVPB ×2 (00:14→05:52)
[2022-01-04] MEDS: NOREPINEPHRINE 8 MG/D5W 250 ML 8 MG/250 ML BAG 93.75 MG IV CONT (00:15)
[2022-01-04] MEDS: HYDROCORTISONE SODIUM SUCCINATE 100 MG/2 ML VIAL IV PUSH ×2 (00:15→07:42)
[2022-01-04] MEDS: SODIUM BICARBONATE 8.4% 150 MEQ in DEXTROSE 5% 1,000 ML 950 ML 100 MEQ IV CONT (00:16)
[2022-01-04] MEDS: MIDAZOLAM 100MG/NS 100ML(*CRX) 100 MG/100 ML BAG 7 MG IV CONT (00:21)
[2022-01-04 00:31] LABS: Glucose Point of Care 205 mg/dl (65-105)
[2022-01-04] MEDS: INSULIN ASPART (*BKC) 100 UNITS/ML SUB-Q (00:33)
[2022-01-04] MEDS: IPRATROPIUM BR 0.02% INH SOLN 0.5 MG/2.5 ML VIAL INHALATION ×2 (02:21→07:57)
[2022-01-04] MEDS: LEVALBUTEROL NEB 1.25 MG/3 ML 0.63 MG INHALATION ×2 (02:22→07:57)
[2022-01-04] MEDS: NOREPINEPHRINE 8 MG/D5W 250 ML 8 MG/250 ML BAG 112.5 MG IV CONT ×4 (02:27→09:06)
[2022-01-04 04:33] LABS: Hemoglobin 12.2 g/dL (12.0-15.0); Mean Corpuscular HGB Conc 32.1 g/dl (32-36); Mean Corpuscular Hemoglobin 32.6 pg (26-34); Mean Corpuscular Volume 101.6 fl (80-100); Mean Platelet Volume 10.9 fl (7.4-10.4); Platelet Count Result 117 k/mm3 (150-375); Red Blood Count 3.74 M/mm3 (4.2-5.4); Red Cell Distribution Width 15.4 % (11.5-14.5)
[2022-01-04 04:51] LABS: INR 3.2; Prothrombin Time 31.4 Seconds (11.1-14.7)
[2022-01-04 04:52] LABS: Partial Thromboplastin Time 56.9 SECONDS (22.3-36.8)
[2022-01-04 04:54] LABS: Albumin Level 2.8 g/dL (3.5-5.1); Alkaline Phosphatase 48 U/L (38-126); Anion Gap 19 mmol/L (8-16); Bilirubin,Total 1.6 mg/dL (0.2-1.3); Blood Urea Nitrogen 30 mg/dL (7-17); Calcium 6.7 mg/dL (8.4-10.2); Carbon Dioxide 18 mmol/L (22-30); Chloride 92 mmol/L (98-107); Estimated CRCL calculation 23 ml/min; Estimated Glomerular Filt Rate 11; Glucose 187 mg/dL (65-110); Magnesium 1.4 mg/dL (1.6-2.3); Phosphorus 6.7 mg/dL (2.5-4.5); Potassium 4.8 mmol/L (3.4-5.0); Sodium 129 mmol/L (137-145)
[2022-01-04 04:56] LABS: Alanine Aminotransferase 463 U/L (4-35)
[2022-01-04 05:02] LABS: Lactic Acid Reflex 11.6 mmol/L (0.7-2.1)
[2022-01-04 05:07] LABS: Base Excess ABG -13.8 mEq/l (+/-2.0); Carboxyhemoglobin 0.2 % THb (0-2.0); Fractional Inspired Oxygen 60 %; HCO3 ABG 15.2 mEq/l (22.0-26.0); Methemoglobin ABG 0.5 %THb (0-1.5); Oxygen Content ABG 16.9 %vol (16.0-22.0); Oxygen Saturation ABG 91.5 % (95.0-100.0); Oxyhemoglobin 93.3 % THb (90.0-100.0); PCO2 ABG 47.3 mmHg (35.0-45.0); PO2 ABG 79.8 mmHg (80.0-100.0); PO2 FiO2 Ratio Arterial Blood 1.33 %; Total Hemoglobin 12.8 g/dL (12.0-18.0)
[2022-01-04 05:08] LABS: Band Neutrophils Percent 22 % (0-6); Eosinophils Absolute Manual 0.22 K/mm3 (0.02-0.5); Eosinophils Percent Manual 1 % (0-4); Lymphocytes Percent Manual 5 % (18-44); Monocytes Percent Manual 10 % (3-9); Neutrophils Absolute Manual 18.48 K/mm3 (1.7-7.2); Neutrophils Percent Manual 62 % (46-73); Total Cells Counted 100
[2022-01-04 05:09] LABS: Aspartate Amino Transferase 1624 U/L (14-36)
[2022-01-04 05:10] LABS: Device VENTILATOR; Modified Allen's Test Pass; Site Drawn ARTLINE; pH ABG 7.124 (7.350-7.450)
[2022-01-04 05:11] LABS: Arterial Blood Gas PEEP 8 cmH2O; Arterial Blood Gas Vent Mode CMV; Arterial Blood Gas Ventilator rate 26 /MIN
[2022-01-04 05:12] LABS: Arterial Blood Gas Tidal Volume 450 ml
[2022-01-04] MEDS: FENTANYL 2,500MCG/NS250ML(*CRX 2,500 MCG/250 ML BAG 12.5 MCG IV CONT (05:16)
[2022-01-04] MEDS: EPINEPHrine INJ 4 MG in DEXTROSE 5% IN WATER 250 ML 38.1 MG IV CONT (05:53)
[2022-01-04 06:26] LABS: Glucose Point of Care 174 mg/dl (65-105)
[2022-01-04 07:31] LABS: Reflex Lactic Acid Yes or No Add Lactic
[2022-01-04] MEDS: PANTOPRAZOLE SODIUM IV 40 MG VIAL IV PUSH (08:04)
[2022-01-04] MEDS: CALCIUM GLUC 2,000 MG/NS 100ML 2,000 MG/100 ML BAG 100 MG IVPB (08:04)
[2022-01-04 08:44] LABS: Creatinine Urine 113.4 mg/dL
[2022-01-04 08:46] LABS: Potassium Urine Random 48.4 meq/L; Sodium Urine Random 67 meq/L
[2022-01-04] MEDS: HYDROCORTISONE 1% 30 GM CREAM 1 APPLIC TOPICAL (08:54)
[2022-01-04] MEDS: MAGNESIUM SULF 2 GM/WATER 50ML 2 GM/50 ML BAG IVPB ×2 (09:07→09:09)
--- NOTE | 2022-01-04 09:18 | PC.NURSE ---
0918- Meeting with patient's brother and TEENA Vera, explained Carlie's condition agreed with placing her on comfort measures, Motorboat Mechanic Inboard Aaron at bedside with patient offering her prayer at this time.
--- NOTE | 2022-01-04 09:26 | WPDINTPN ---
Progress Note: A&P Assessment and Plan (1) Respiratory failure with hypoxia: Qualifiers: Chronicity: acute Qualified Code(s): J96.01 - Acute respiratory failure with hypoxia Code(s): J96.91 - Respiratory failure, unspecified with hypoxia Status: Acute Assessment and Plan: Patient presented with septic shock, was given a total of 2.5 L in IV fluids, also with severe metabolic acidosis/lactic acidosis. Patient was getting more short of breath, decided to intubate the patient reports she has a respiratory arrest as she was tachypneic. I did discuss with the patient and she was agreeable for intubation -intubation was done on 01/03/2022 which was uneventful -currently on CMV mode of ventilation, ABGs reviewed, likely metabolic acidosis, patient desaturated this morning requiring respiratory therapist to bag the patient, FiO2 was increased to 100% and peep was increased to 10, with improvement in her O2 sats. -continue bronchodilator -sedated with fentanyl and Versed infusion (2) Septic shock: Code(s): A41.9 - Sepsis, unspecified organism; R65.21 - Severe sepsis with septic shock Status: Acute Assessment and Plan: Patient with refractory hypotension, likely due to UTI, significant lactic acidosis could be related to ischemic bowel, chest x-ray shows pulmonary vascular congestion -currently on Levophed, Jamie-Synephrine, vasopressin, epinephrine and dopamine, all maxed at -on stress dose steroids -lactic acid remains elevated which could be related to bowel ischemia -will maintain MAP > 65-70 mmHg for adequate end organ perfusion -worsening renal function with decreased urine output, elevated LFTs due to shock liver -continue Zosyn, vancomycin -01/03/2022 blood cultures growing Gram-negative bacilli 2/2 bottles, urine cultures growing E coli (3) UTI (urinary tract infection): Code(s): N39.0 - Urinary tract infection, site not specified Status: Acute Assessment and Plan: Urine cultures E coli UTI, continue antibiotics as above (4) ARF (acute renal failure): Qualifiers: Acute renal failure type: with acute tubular necrosis Qualified Code(s): N17.0 - Acute kidney failure with tubular necrosis Code(s): N17.9 - Acute kidney failure, unspecified Status: Acute Assessment and Plan: Acute renal failure likely related to septic shock, infection/UTI, ATN -creatinine is 4.0 (baseline creatinine 0.9-1.1 on 08/23/2021) -01/03: renal ultrasound normal kidneys without hydronephrosis -persistently elevated lactic acidosis and metabolic acidosis -patient has received adequate IV fluids -continue sodium bicarb infusion (5) NSTEMI (non-ST elevated myocardial infarction): Code(s): I21.4 - Non-ST elevation (NSTEMI) myocardial infarction Status: Acute Assessment and Plan: Patient presented with troponin 13.8, repeat troponin of 14.1 and the 3rd set was 7.3 -patient currently on heparin infusion -cardiology evaluated the patient, given her acute renal injury and severe septic shock, patient not a candidate for coronary angiogram -heparin infusion was discontinued -not a candidate for beta-kane given patient is on 5 pressors (6) Atrial fibrillation with rapid ventricular response: Code(s): I48.91 - Unspecified atrial fibrillation Status: Acute Assessment and Plan: Patient presented with AFib RVR, was given amiodarone bolus x2 and is on amiodarone infusion. Currently in sinus rhythm, rate controlled -patient does not have a history of AFib, this could be related to severe septic shock, metabolic acidosis/lactic acidosis Patient converted to sinus rhythm, heparin infusion was discontinued (7) Morbid obesity: Code(s): E66.01 - Morbid (severe) obesity due to excess calories Status: Acute Assessment and Plan: Chronic (8) Lymphedema: Code(s): I89.0 - Lymphedema, not elsewhere classified Status: Acut
[2022-01-04] MEDS: LORazepam INJ (*CRX) 2 MG/ML VIAL IV PUSH (09:31)
--- NOTE | 2022-01-04 14:20 | P.DN_ITS ---
Discharge Summary Date and Time Date of : 01/04/22 Time of : 10:00 Provider Pronounced By: Tamara Arauz RN, Nina Love RN Probable Cause of Probable Cause of : Septic shock, urinary tract infection Summary Hospital Course: 71-year-old female with a past medical history of morbid obesity, Parkinson's, CHF, lymphedema, diabetes, chronic pain and congestive heart failure who presented to the ER after having a fall at home. Patient has been feeling weak for the past couple weeks. In the ED she was noted to be in atrial fibrillation with rapid ventricular rate. See had no history of atrial fibrillation in the past. Patient was given metoprolol little found to be hypotensive. Patient was treated with IV fluid however proBNP was greater than 30,000. Central line was inserted and was started on Levophed. Patient was also found to have UTI and significant metabolic acidosis/linear lactic acidosis. Her troponin was also elevated at 13.8 with repeat at 14.1 patient was diagnosed with septic shock and was transferred to the ICU for further evaluation and management. She was started on broad-spectrum antibiotics with vancomycin and cefepime. She required multiple vasopressors with dopamine Levophed and vasopressin for her hypotension. She was started on amiodarone bolus for atrial fibrillation. Patient was negative for COVID-19. For evaluation of for lactic acidosis she conferred to a CT scan and hence could not be done. General surgery was consulted during the hospital stay along with Cardiology. Patient continued to do poorly and was eventually intubated on 01/03/2022. However with progressive decline patient was eventually switched to comfort care and was palliatively extubated. Patient subsequently and necessary arrangements were made. Additional Data Confirmation of as documented by pronouncing clinician: Pupillary Reflex, Palpable Pulses, Response to Stimuli, Heart Tones and Breath Sounds Name of Provider Notified: Dr. Mendoza Time Provider Notified: 10:00 Provider Requests Autopsy: No Family Requests Autopsy: No Typesetting Supervisor Notified: Yes Date [facility] Notified of : 01/04/22 Time [facility] Notified of : 10:55
== END 2022-01-04 10:00 | disposition expired | DRG 871 ==
LOC: ANHED 01-03 05:33 → ANHICU 01-03 05:43
PROVIDERS: Internal Medicine; Physician Assistant; Admitting Provider Internal Medicine; Emergency Provider Emergency Medicine; PCP Internal Medicine; Visit Provider Internal Medicine
DX: A41.50 Gram-negative sepsis, unspecified (principal); R65.21 Severe sepsis with septic shock; I21.4 Non-ST elevation (NSTEMI) myocardial infarction; J96.01 Acute respiratory failure with hypoxia; N17.0 Acute kidney failure with tubular necrosis; K72.00 Acute and subacute hepatic failure without coma; Z68.44 Body mass index [BMI] 60.0-69.9, adult; N39.0 Urinary tract infection, site not specified; E87.2 Acidosis; F33.9 Major depressive disorder, recurrent, unspecified; B96.20 Unspecified Escherichia coli [E. coli] as the cause of diseases classified elsewhere; Z20.822 Contact with and (suspected) exposure to COVID-19; Z66 Do not resuscitate; E78.2 Mixed hyperlipidemia; E66.01 Morbid (severe) obesity due to excess calories; E11.42 Type 2 diabetes mellitus with diabetic polyneuropathy; I11.0 Hypertensive heart disease with heart failure; I25.10 Atherosclerotic heart disease of native coronary artery without angina pectoris; I48.91 Unspecified atrial fibrillation; I89.0 Lymphedema, not elsewhere classified; G20 Parkinson's disease; I50.9 Heart failure, unspecified; I35.0 Nonrheumatic aortic (valve) stenosis; G25.81 Restless legs syndrome; G47.33 Obstructive sleep apnea (adult) (pediatric); G89.29 Other chronic pain; K21.9 Gastro-esophageal reflux disease without esophagitis; M81.0 Age-related osteoporosis without current pathological fracture; R58 Hemorrhage, not elsewhere classified; S30.0XXA Contusion of lower back and pelvis, initial encounter; S40.819A Abrasion of unspecified upper arm, initial encounter; S80.819A Abrasion, unspecified lower leg, initial encounter; Z79.4 Long term (current) use of insulin; Z86.718 Personal history of other venous thrombosis and embolism; Z90.710 Acquired absence of both cervix and uterus; Z90.49 Acquired absence of other specified parts of digestive tract; Z87.442 Personal history of urinary calculi; Z51.5 Encounter for palliative care; Z98.1 Arthrodesis status; Z79.84 Long term (current) use of oral hypoglycemic drugs; W18.11XA Fall from or off toilet without subsequent striking against object, initial encounter; E66.1 Drug-induced obesity; Z99.3 Dependence on wheelchair
CPT/HCPCS: 31500; 36415; 36600; 71045; 72100; 76775; 80048; 80053; 80076; 81001; 82375; 82436; 82550; 82570; 82805; 82948; 83036; 83050; 83605; 83735; 83880; 84100; 84133; 84300; 84443; 84484; 85014; 85018; 85025; 85049; 85055; 85380; 85384; 85610; 85730; 86140; 87040; 87077; 87086; 87088; 87186; 93005; 94002; 94003; 94640; 96372; 99285; A9270; C1751; C8929; C9113; C9803; J0131; J0171; J0282; J0610; J1170; J1265; J1644; J1720; J1815; J2060; J2250; J2370; J2543; J3010; J3370; J3475; J7030; J7060; J7070; P9047; Q9957; U0003; U0005